=== PATIENT | female | born 1990 | race Caucasian/White ===

== ENCOUNTER 2019-11-26 10:42 | Emergency (ER) | payer BC ==
[~2019-11-26] VITALS: Ht 177.8 cm; Wt 68.0 kg
[2019-11-26] MEDS ORDERED: JUNEL 1.5 MG-31 EACH PO (11:13)
[2019-11-26] MEDS ORDERED: ZITHROMAX500 MG PO (14:34)
== END 2019-11-26 14:49 | disposition home or self-care (01) ==
LOC: ER 10:42
DX: B33.8 Other specified viral diseases (principal); B96.0 Mycoplasma pneumoniae [M. pneumoniae] as the cause of diseases classified elsewhere; J02.0 Streptococcal pharyngitis